=== PATIENT | male | born 1940 | race Caucasian/White ===

== ENCOUNTER 2019-06-01 08:21 | Inpatient (IN) | payer MEDICARE, SELFPAY ==
[~2019-06-01] VITALS: Ht 177.8 cm; Wt 75.7 kg
[2019-06-01] MEDS ORDERED: SODIUM CHLORIDE 0.9% 1,000 ML IV ONE ×2 (08:26)
[2019-06-01 09:17] LABS: Albumin 2.4 g/dL (3.4-5.0); Calcium 8.4 mg/dL (8.5-10.1); Potassium 4.5 mmol/L (3.5-5.1)
[2019-06-01 09:19] LABS: INR 1.23 (0.9-1.15); Lactic Acid w/Reflex 4.6 mmol/L (0.4-2.0); Partial Thromboplastin Time 29.8 sec (23.64-32.05)
[2019-06-01 09:23] LABS: BUN/Creatinine Ratio 30.2; Basophils # (auto) 0 10 ^3/uL (0-0.2); Basophils % (auto) 0.4 % (0.0-2.0); Bilirubin, Total 0.6 mg/dL (0.2-1.0); Eosinophils # (auto) 0 10 ^3/uL (0-0.8); Eosinophils % (auto) 0.1 % (0.0-7.0); Hematocrit 45.8 % (41.0-53.0); Hemoglobin 14.2 g/dL (13.5-17.5); Lymphocytes # (auto) 0.5 10 ^3/uL (0.4-5.4); Mean Corpuscular Hemoglobin 28.9 pg (28.0-32.0); Mean Corpuscular Volume 93.1 fL (80.0-100.0); Monocytes # (auto) 0.2 10 ^3/uL (0-1.3); Monocytes % (auto) 3.2 % (0.0-12.0); Neutrophils # (auto) 6.2 10 ^3/uL (1.6-8.6); Neutrophils % (auto) 89.3 % (37.0-80.0); Nucleated Red Blood Cells % 0.8 %; Red Blood Cells 4.91 10^6/uL (4.5-5.90); Red Cell Distribution Width 17.4 % (11.8-14.3); Total Protein 7.4 g/dL (6.4-8.2); White Blood Cell 6.9 10^3/uL (4.4-10.8)
[2019-06-01 09:27] LABS: Platelet Count (auto) 66 10^3/uL (140-450)
[2019-06-01] MEDS ORDERED: cefTRIAXone 1GM/50ML D5W 50 ML IV ONE (10:30)
[2019-06-01] MEDS ORDERED: AZITHROMYCIN 500MG/ 250ML 250 ML IV ONE (10:30)
[2019-06-01] MEDS ORDERED: NOREPINEPHRINE 8 MG/250ML KIT 250 ML IV ONE (10:56)
[2019-06-01] MEDS ORDERED: PIPERACILLIN-TAZOB 2.25GM 50 ML IV ONE (11:15)
[2019-06-01] MEDS ORDERED: LACTULOSE 20Gm/30ML SOLN PO PRN (11:15)
[2019-06-01] MEDS ORDERED: DEXTROSE (50%) 50ML SYRG IV PRN ×2 (11:15)
[2019-06-01] MEDS ORDERED: MORPHINE SULF INJ 2 MG/ML SYRINGE 1ML IV PRN (11:15)
[2019-06-01] MEDS ORDERED: NITROGLYCERIN 0.4 MG SL TAB SL PRN (11:15)
[2019-06-01] MEDS ORDERED: ACETAMINOPHEN 500 MG TAB PO PRN (11:15)
[2019-06-01] MEDS ORDERED: ONDANSETRON HCL 4 MG/2 ML VIAL IV PRN (11:15)
[2019-06-01] MEDS ORDERED: CLINDAMYCIN 900MG IV 50 ML IV ONE (11:15)
[2019-06-01] MEDS ORDERED: LORazepam 2MG/ML-1ML VIAL IV PRN (11:15)
[2019-06-01] MEDS ORDERED: ALBUTEROL SULF 2.5 MG/0.5ML(0.5%) NEB SOLN NEB PRN (11:15)
[2019-06-01] MEDS ORDERED: InsuLIN REG 1unit/0.01ml Soln (100units/ml) SC SCH (12:00)
[2019-06-01] MEDS ORDERED: ACCU-CHEK COMFORT CURVE STRIP VI SCH (12:00)
[2019-06-01] MEDS: D5W/SOD CHL 0.45% 1,000 ML IV SCH ×2 (12:03→21:34)
[2019-06-01] MEDS: NOREPINEPHRINE 8 MG/250ML KIT 250 ML IV SCH (12:08)
[2019-06-01] MEDS: ACCU-CHEK COMFORT CURVE STRIP VI SCH ×3 (13:00→21:33)
[2019-06-01] MEDS: FAMOTIDINE (10MG/ML) 2ML VL IV SCH (13:30)
[2019-06-01] MEDS: ALBUTEROL SULF 2.5 MG/0.5ML(0.5%) NEB SOLN NEB SCH ×2 (13:48→18:00)
[2019-06-01] MEDS: IPRATROPIUM BROM 0.5 MG/2.5ML INH SOL NEB SCH ×2 (13:48→18:00)
[2019-06-01 15:59] VITALS: BP 116/62
[2019-06-01] MEDS: InsuLIN REG 1unit/0.01ml Soln (100units/ml) SC SCH ×3 (16:42→21:43)
[2019-06-01] MEDS: CLINDAMYCIN 600MG IV 50 ML IV SCH (21:26)
[2019-06-01] MEDS: PIPERACILLIN-TAZOB 2.25GM 50 ML IV SCH (22:08)
[2019-06-02] VITALS (55 sets, daily range): BP systolic 60–114; BP diastolic 40–63
[2019-06-02] MEDS: ACCU-CHEK COMFORT CURVE STRIP VI SCH ×6 (00:21→20:00)
[2019-06-02 00:49] LABS: Urine Amorphous Crystal FEW /hpf (None Seen); Urine Bacteria FEW /hpf (None Seen); Urine Blood 2+ /uL (Negative); Urine Hyaline Cast MOD /lpf (0 - 2); Urine Specific Gravity 1.021 (1.001-1.035); Urine WBC 16 /hpf (0 - 3)
[2019-06-02] MEDS: IPRATROPIUM BROM 0.5 MG/2.5ML INH SOL NEB SCH ×4 (01:10→22:29)
[2019-06-02] MEDS: ALBUTEROL SULF 2.5 MG/0.5ML(0.5%) NEB SOLN NEB SCH ×3 (01:10→22:29)
[2019-06-02] MEDS: NOREPINEPHRINE 8 MG/250ML KIT 250 ML IV SCH (03:58)
[2019-06-02] MEDS: InsuLIN REG 1unit/0.01ml Soln (100units/ml) SC SCH ×6 (04:00→20:50)
[2019-06-02] MEDS: CLINDAMYCIN 600MG IV 50 ML IV SCH (04:54)
[2019-06-02 05:14] LABS: Basophils # (auto) 0 10 ^3/uL (0-0.2); Eosinophils # (auto) 0 10 ^3/uL (0-0.8); Eosinophils % (auto) 0.1 % (0.0-7.0); Hemoglobin 12.4 g/dL (13.5-17.5); Lymphocytes # (auto) 0.6 10 ^3/uL (0.4-5.4); Monocytes # (auto) 0.3 10 ^3/uL (0-1.3); Red Cell Distribution Width 16.9 % (11.8-14.3); White Blood Cell 8.1 10^3/uL (4.4-10.8)
[2019-06-02 05:16] LABS: Basophils % (auto) 0.4 % (0.0-2.0); Hematocrit 38.5 % (41.0-53.0); Lymphocytes % (auto) 7.3 % (10.0-50.0); Mean Corpuscular Hemoglobin 29.2 pg (28.0-32.0); Mean Corpuscular Hgb Conc. 32.1 g/dL (32.0-36.0); Monocytes % (auto) 3.9 % (0.0-12.0); Neutrophils # (auto) 7.2 10 ^3/uL (1.6-8.6); Neutrophils % (auto) 88.3 % (37.0-80.0); Platelet Count (auto) 60 10^3/uL (140-450); Red Blood Cells 4.24 10^6/uL (4.5-5.90)
[2019-06-02 05:33] LABS: Albumin 2.1 g/dL (3.4-5.0); Calcium 7.5 mg/dL (8.5-10.1); Potassium 4.3 mmol/L (3.5-5.1)
[2019-06-02 05:37] LABS: BUN/Creatinine Ratio 25.9; Bilirubin, Total 0.5 mg/dL (0.2-1.0); Total Protein 6.6 g/dL (6.4-8.2)
[2019-06-02] MEDS: PIPERACILLIN-TAZOB 2.25GM 50 ML IV SCH ×3 (06:34→20:51)
[2019-06-02] MEDS ORDERED: ENOXAPARIN SOD 30 MG/0.3 ML SYRINGE SC SCH (10:00)
[2019-06-02] MEDS ORDERED: ASPirin 81 mg TAB PO SCH (10:00)
[2019-06-02] MEDS ORDERED: ENOXAPARIN SOD 60 MG/0.6 ML SYRINGE SC SCH (10:00)
--- NOTE | 2019-06-02 10:00 | NUR ---
Pt being admitted to ICU PEDRO LUISBRENDAN admitted to ICU via gurney on tmd teacher assistant, and portable 02. Patient transfered to bed, connected to ICU monitoring and oxygen, and weighed by bedscale. Patient oriented to Irma Bowen,FRAN primary RN,ICU unit,room 107, bed, and unit policies regarding patient care and visiting hours.
--- NOTE | 2019-06-02 10:05 | NUR ---
SPOKE TO FAMILY Called Jennifer, daughter, and notified her of need to for intubation and central line. Jennifer verbalized understanding and that she wants everything done. Second RN verified consent for line. Signed and placed in chart.
--- NOTE | 2019-06-02 10:11 | NUR ---
NON REBREATHER Patient came to ICU on simple mask at 10L, switched to non rebreather due to accessory muscle use and low saturations. RT bedside.
[2019-06-02] MEDS ORDERED: SUCCINYLCHOLINE CHLORIDE 20 MG/ML 10ML VIAL IV ONE (10:28)
[2019-06-02] MEDS ORDERED: ETOMIDATE (2MG/ML) 20ML VIAL IV ONE (10:28)
[2019-06-02] MEDS ORDERED: fentaNYL Drip 2500mCg/250mlNS 250 ML IV ONE ×2 (10:33→22:45)
--- NOTE | 2019-06-02 10:41 | NUR ---
ICU pt. intubated after admit Dr. Capone called regarding patient's respiratory status. Order received for intubation. Respiratory Therapist notified and at bedside. Family instructed on need for intubation and possible sedation while on ventilator. Patient intubated by Shanthi with 8 ETT, 21 at the [facility]. Medications: Etomidate 16 Suc 120 Addendum: 06/02/19 at 1304 by Irma Bowen RN RN 23 at [facility]
[2019-06-02] MEDS ORDERED: D5W 5% 1,000 ML IV ONE (10:45)
[2019-06-02] MEDS: FAMOTIDINE (10MG/ML) 2ML VL IV SCH (10:50)
[2019-06-02] MEDS: AZITHROMYCIN 500MG/ 250ML 250 ML IV SCH (10:50)
--- NOTE | 2019-06-02 10:50 | NUR ---
UPDATED FAMILY Called Angi daughter and updated her on patient status, vent, pressure support, etc.
[2019-06-02] MEDS ORDERED: ALBUTEROL SULF HFA 90MCG INH 200DOSE IN SCH (11:00)
[2019-06-02] MEDS: CHOLECALCIFEROL (VITD3) 1,000IU=25mCg TAB PO SCH (11:00)
[2019-06-02] MEDS: ASCORBIC ACID 500 MG TAB PO SCH (11:00)
[2019-06-02] MEDS ORDERED: ACETAMINOPHEN 500 MG TAB PO PRN ×2 (11:00→15:45)
[2019-06-02] MEDS: ZINC SULFATE 220mg CAP or TAB PO SCH (11:00)
--- NOTE | 2019-06-02 11:00 | NUR ---
PT INTUBATED 8.0 ETT SECURED AT 23 CM AT THE LIP WITH DEVIN. PT PLACED ON VENT ON ORDERED SETTINGS PER DR MILLIGAN, AC RR 12, VT 550, PEEP 8, 100% FIO2. SPO2 92%. EQUAL BILAT CHEST RISE AND FALL NOTED. POSITIVE COLOR CHANGE NOTED ON CO2 DETECTOR. BILAT BREATH SOUNDS AUSCULTATED.
--- NOTE | 2019-06-02 11:40 | NUR ---
SPOKE TO FAMILY Family, daughter, Angi has verbalized to make her father DNR. Candice spoke with her over the phone and form has been filed in the chart.
--- NOTE | 2019-06-02 11:40 | NUR ---
VENT SETTINGS CHANGED BY DR PRASAD TO AC RR 18, VT 450, PEEP7, 100%.
--- NOTE | 2019-06-02 14:08 | NUR ---
Nutrition Assessment Notes Please refer to link for full assessment notes. Est energy needs: 4354-6108 kcals (25-30 kcal/kgBW) Est protein needs: 60-65 gms/day (1.0-1.1 gm/kgBW) Will continue to monitor and reassess prn. Addendum: 06/02/19 at [address] Amended: Links added.
[2019-06-02] MEDS ORDERED: D5W 5% 1,000 ML IV SCH (15:45)
[2019-06-02 17:13] LABS: Albumin 1.8 g/dL (3.4-5.0); Calcium 7.1 mg/dL (8.5-10.1); Potassium 3.9 mmol/L (3.5-5.1)
[2019-06-02 17:17] LABS: BUN/Creatinine Ratio 23.4; Bilirubin, Total 0.6 mg/dL (0.2-1.0); Total Protein 5.9 g/dL (6.4-8.2)
[2019-06-02 17:20] LABS: Cholesterol 91 mg/dL (< 200)
[2019-06-02 17:22] LABS: HDL Cholesterol 51 mg/dL (40-59); LDL Cholesterol 32 mg/dL (< 100); Triglycerides 76 mg/dL (< 150)
[2019-06-02] MEDS ORDERED: SODIUM CHL 3% 200 ML IV ONE (18:00)
--- NOTE | 2019-06-02 18:07 | NUR ---
SPOKE TO MD Dr. Mota has ordered 3% sodium at 40ml/hr for 3 hours to slow down hypernatremia collection. Addendum: 06/02/19 at 1807 by Irma Bowen RN RN correction*
[2019-06-02] MEDS ORDERED: SODIUM CHL 3% 120 ML IV ONE (19:00)
[2019-06-02] MEDS ORDERED: SODIUM CHL 3% 500 ML IV ONE (19:30)
--- NOTE | 2019-06-02 19:45 | NUR ---
OPEN ASSUMED CARE OF MALE PT ORALLY INTUBATED. PT SEDATED ON FENTANYL GTT 200 MCG/HR. SINUS RHYTHM ON MITER SAWYER. PT ON LEVOPHED GTT 16 MCG/MIN. GTT'S INFUSING INTO RIJ TLC ALL PORTS PATENT. DRESSING CDI. NGT TO L. NARE CLAMPED. PLACEMENT VERIFIED. 20 G IV TO L. AC S/L B&P, 18 G IV TO L. UPPER F.A. B&P. SEGAL TO GRAVITY DRAINING SCANT DARK ALANNAH URINE CLOUDY IN APPEARANCE. PT HYPOTHERMIC. WARMING MEASURES PLACED. PT ON RESPIRATORY PRECAUTIONS IN NEGATIVE PRESSURE ROOM. PT IS RULE OUT COVID-19 PRECAUTIONS. PROPER PPE IN USE. NO INDICATION OF PAIN OBSERVED. BED IN LOWEST LOCKED POSITION. SIDE RAILS UP X 3. HOB ELEVATED 30 DEGREES. PILLOWS USED TO OFFLOAD BONY PROMINENCES AND LISA HEELS. PT IN FULL VIEW OF RN STATION. WILL CONTINUE TO MONITOR.
[2019-06-03] VITALS (104 sets, daily range): BP systolic 65–179; BP diastolic 29–96
[2019-06-03] MEDS: fentaNYL Drip 2500mCg/250mlNS 250 ML IV SCH (00:04)
[2019-06-03 00:08] LABS: BUN/Creatinine Ratio 23.1; Calcium 7.1 mg/dL (8.5-10.1)
[2019-06-03] MEDS: ACCU-CHEK COMFORT CURVE STRIP VI SCH ×5 (00:09→18:00)
[2019-06-03] MEDS: InsuLIN REG 1unit/0.01ml Soln (100units/ml) SC SCH ×5 (00:10→18:00)
[2019-06-03] MEDS: NOREPINEPHRINE 8 MG/250ML KIT 250 ML IV SCH ×2 (00:24→06:39)
--- NOTE | 2019-06-03 03:15 | NUR ---
GI/ BATH LINEN CHANGE PT HAD SMALL BROWN BM. PT GIVEN COMPLETE BED BATH AND LINEN CHANGE. NEW OPTIFOAM GENTLE SACRAL DRESSING PLACED. PT REPOSITIONED. ORAL CARE PROVIDED.
[2019-06-03 03:45] LABS: Basophils # (auto) 0 10 ^3/uL (0-0.2); Basophils % (auto) 0.3 % (0.0-2.0); Eosinophils # (auto) 0 10 ^3/uL (0-0.8); Eosinophils % (auto) 0.2 % (0.0-7.0); Lymphocytes # (auto) 0.7 10 ^3/uL (0.4-5.4); Monocytes # (auto) 0.2 10 ^3/uL (0-1.3); Red Cell Distribution Width 17.9 % (11.8-14.3); White Blood Cell 6.3 10^3/uL (4.4-10.8)
[2019-06-03 03:46] LABS: Hematocrit 37.1 % (41.0-53.0); Hemoglobin 11.2 g/dL (13.5-17.5); Lymphocytes % (auto) 11.1 % (10.0-50.0); Mean Corpuscular Hemoglobin 28.7 pg (28.0-32.0); Mean Corpuscular Hgb Conc. 30.4 g/dL (32.0-36.0); Mean Corpuscular Volume 94.6 fL (80.0-100.0); Monocytes % (auto) 2.9 % (0.0-12.0); Neutrophils # (auto) 5.4 10 ^3/uL (1.6-8.6); Neutrophils % (auto) 85.5 % (37.0-80.0); Nucleated Red Blood Cells % 1.4 %; Platelet Count (auto) 46 10^3/uL (140-450); Red Blood Cells 3.92 10^6/uL (4.5-5.90)
--- NOTE | 2019-06-03 04:12 | NUR ---
FAMILY CALL PT DAUGHTER ELADIO CALLED UNIT FOR UPDATE ON PT CONDITION. AFTER PASSWORD FOR PHONE GIVEN, UPDATE PROVIDED. ALL QUESTIONS AND CONCERNS ADDRESSED.
[2019-06-03] MEDS: PIPERACILLIN-TAZOB 2.25GM 50 ML IV SCH ×3 (04:40→21:07)
[2019-06-03] MEDS: IPRATROPIUM BROM 0.5 MG/2.5ML INH SOL NEB SCH (07:30)
[2019-06-03] MEDS: ALBUTEROL SULF 2.5 MG/0.5ML(0.5%) NEB SOLN NEB SCH (07:30)
--- NOTE | 2019-06-03 07:36 | NUR ---
RT NOTE: VOICE MAIL LEFT FOR DR. PRASAD REGARDING ABG RESULTS.
--- NOTE | 2019-06-03 07:40 | NUR ---
RT NOTE: ABG RESULTS REPORTED TO HOSPITALIST DR. QUINTANA.
[2019-06-03] MEDS ORDERED: SOD CHL 0.45% 1,000 ML IV SCH (07:45)
--- NOTE | 2019-06-03 07:45 | NUR ---
RETURN CALL FROM DR QUINTANA REGARDING CRITICAL ABG. ORDERS FOR 1/2 NS WITH 2 AMPS OF SODIUM BICARB RECEIVED TO RUN AT 75 MLS/HR. ORDERS WILL BE CARRIED OUT.
[2019-06-03] MEDS ORDERED: AZITHROMYCIN DIHYD 500 MG VIAL IV SCH (09:00)
--- NOTE | 2019-06-03 09:54 | NUR ---
WOUND CARE NOTE: Wound care in to see patient per wound care request regarding low Hayden score of 10, intubation status,putting patient to high risk for skin breakdown. Patient is 78 years old male with admitting diagnosis of Pneumonia with Sepsis and Septic Shock. Patient with history of Dementia, DM, High Lipids. Patient is resting in ICU bed in Rm. 112. Patient is intubated, and mechanically ventilated. Unable to do full skin assessment at this time due to patient is on airborne precautions, R/O CoVid, limiting exposure. RN Salome reported that she just got out of patient's room and she noted skin issue to patient's foot, toes and darkened heels. Bedside nurse is clustering care to limit exposure, requesting assistance for skin/wound assessment, agreement made to do skin/wound assessment on next patient's care at 1200 noon.
[2019-06-03] MEDS: AZITHROMYCIN 500MG/ 250ML 250 ML IV SCH (10:06)
[2019-06-03] MEDS: SODIUM BICARBONATE 50ML VIAL 100 ML in SOD CHL 0.45% 1,000 ML IV SCH ×2 (10:06→23:40)
[2019-06-03] MEDS: ZINC SULFATE 220mg CAP or TAB PO SCH (10:06)
[2019-06-03] MEDS: ASCORBIC ACID 500 MG TAB PO SCH (10:07)
[2019-06-03] MEDS: CHOLECALCIFEROL (VITD3) 1,000IU=25mCg TAB PO SCH (10:08)
--- NOTE | 2019-06-03 10:24 | NUR ---
SEDATION VACATION NO ORDER FOR VACATION RECEIVED/COVID 19 RULE OUT, PENDING MD ASSESSMENT. Addendum: 06/03/19 at 1025 by Salome Valles RN Amended: Links added.
[2019-06-03 10:29] LABS: Basophils # (auto) 0 10 ^3/uL (0-0.2); Basophils % (auto) 0.2 % (0.0-2.0); Eosinophils # (auto) 0 10 ^3/uL (0-0.8); Eosinophils % (auto) 0.2 % (0.0-7.0); Hematocrit 35.2 % (41.0-53.0); Hemoglobin 11.5 g/dL (13.5-17.5); Lymphocytes # (auto) 0.7 10 ^3/uL (0.4-5.4); Mean Corpuscular Hemoglobin 29.9 pg (28.0-32.0); Mean Corpuscular Hgb Conc. 32.6 g/dL (32.0-36.0); Mean Corpuscular Volume 91.6 fL (80.0-100.0); Monocytes # (auto) 0.2 10 ^3/uL (0-1.3); Monocytes % (auto) 2.7 % (0.0-12.0); Neutrophils # (auto) 6.2 10 ^3/uL (1.6-8.6); Neutrophils % (auto) 86.9 % (37.0-80.0); Nucleated Red Blood Cells % 0.7 %; Platelet Count (auto) 38 10^3/uL (140-450); Red Blood Cells 3.84 10^6/uL (4.5-5.90); Red Cell Distribution Width 17.3 % (11.8-14.3); White Blood Cell 7.2 10^3/uL (4.4-10.8)
--- NOTE | 2019-06-03 10:30 | NUR ---
HOSPITALIST AT BEDSIDE DR PADILLA UPDATED ON PATIENT'S STATUS, DRIPS AND PENDING LABS FOR THIS MORNING. DR PADILLA ALSO AWARE OF MORNING ABG AND ORDERS RECEIVED FROM DR QUINTANA. DR PADILLA ORDERED ONE AMP OF SODIUM BICARB IVP. NO FURTHER ORDERS RECEIVED AT THIS TIME.
[2019-06-03 10:47] LABS: Albumin 1.6 g/dL (3.4-5.0); Calcium 7.2 mg/dL (8.5-10.1); Potassium 5.3 mmol/L (3.5-5.1)
[2019-06-03 10:52] LABS: Bilirubin, Total 0.8 mg/dL (0.2-1.0); Total Protein 5.7 g/dL (6.4-8.2)
--- NOTE | 2019-06-03 11:43 | NUR ---
DR PRASAD AT BEDSIDE UPDATED ON PATIENT'S STATUS, DRIPS AND PENDING LAB RESULTS. DR PRASAD AWARE OF MORNING ABG RESULTS AND ORDERED FLUIDS BY ER PHYSICIAN AND DR PADILLA'S RECOMMENDATIONS FOR ONE ADDITIONAL AMP OF SODIUM BICARB IVP. DR PRASAD VERBALIZED UNDERSTANDING AND STANDING ORDERS FOR: CBC, CMP, ABG AND CXR DAILY.
[2019-06-03] MEDS ORDERED: SODIUM BICARBONATE 8.4 % INJ 50ML VIAL IV ONE (11:45)
--- NOTE | 2019-06-03 11:45 | NUR ---
PAGED HOSPITALIST DR PADILLA TO REVIEW LAB RESULTS, AWAITING RESPONSE.
--- NOTE | 2019-06-03 11:48 | NUR ---
RETURN CALL FROM HOSPITALIST WILL REVIEW LABS AND PROVIDE ORDERS.
[2019-06-03] MEDS ORDERED: SODIUM BICARBONATE 8.4% INJ 50ML SYRINGE ONE (11:52)
[2019-06-03] MEDS: FAMOTIDINE (10MG/ML) 2ML VL IV SCH (12:20)
--- NOTE | 2019-06-03 12:30 | NUR ---
WOUND CARE NOTE: Wound care in to see patient for skin/wound assessment noted by bedside nurse upon assessment. Patient is resting in ICU premium bed in Rm. 112A. Patient is intubated and mechanically ventilated. Patient appears to be in no pain using Turner Campbell Faces Pain Scale. Skin/wound assessment done with the assistance of patient's nurse, FRAN Mcmahon. Patient noted with multiple pressure injury in various Stages. His distal Rt great toe and Rt second toe has dark purple/black discoloration. Multiple intact DTI noted on patient's Rt plantar foot at metatarsal head (5x4.5cm), Rt heel (9x9cm), L medial foot (1.2x1.2cm), and L heel (7x5cm). Deep Tissue Injuries are dark purple,soft and boggy to touch. Patient's Rt anterior ankle has 1.5x1.5cm dark red non-blanchable skin with serum filled blister consistent with Stage 2 pressure injury). Foot, heel, toes wounds has no drainage/odor noted, left open to air. Patient's sacrum has dark hyperpigmented, non-blanchable skin (stage 1 pressure injury). Patient's perirectal area has multi open wounds consistent with moisture associated skin damage. Patient pass scant amount of pasty stool; yolanda care given, applied Z Guard cream to perirectal area, lower buttocks and sacrum. Covered upper sacrum with Opti foam sacral dressing. Unstageable pressure injury note don patient's Rt hip measuring 1.5x1.5cm. Wound is covered with 100% black eschar,yolanda wound is bright red/pink, no drainage/odor noted, left open to air. Multiple intact scars with brown hyperpigmented skin noted on patient's L hip and L lateral thigh area; clean and dry, left open to air. Patient tolerated well. fill technician arrived at bedside. Given bedside nurse Leola foam boots for patient's BLE. FRAN Mcmahon and certified hyperbaric technologist at bedside. RECOMMENDATION: Nursing to continue with BID/PRN cleaning and application of Z Guard cream to sacral, buttocks, perineum wound per MD order, Dietary consult , frequent turning and repositioning schedule as condition permits, redistribute pressure points with pillows, Leola foam boots to BLE, air mattress if patient to transfer to other unit, continue monitoring by wound care while patient is hospitalized. Addendum: 06/03/19 at 1343 by Alis Herrera RN Amended: Links added.
--- NOTE | 2019-06-03 12:58 | NUR ---
DR PAIGE/FAMILY UPDATE PATIENT'S SON KURTIS ON PHONE, DR PAIGE SPOKE WITH KURTIS AND UPDATE ON PATIENT'S STATUS. DISCUSS PLAN OF CARE AND PROGNOSIS. PER KURTIS DISCUSSED WITH DR PAIGE AND VERIFIED BY THIS NURSE, PATIENT IS DNR AND NO FURTHER INVASIVE TREATMENT OR ADDED TREATMENTS TO BE ADDED AT THIS TIME. Addendum: 06/03/19 at 1406 by Salome Valles RN DR PAIGE AWARE OF CRITICAL LABS NO VERBAL ORDERS RECEIVED AT THIS TIME.
[2019-06-03] MEDS ORDERED: ALBUTEROL SULF 2.5 MG/0.5ML(0.5%) NEB SOLN NEB SCH (14:00)
[2019-06-03] MEDS ORDERED: IPRATROPIUM BROM 0.5 MG/2.5ML INH SOL NEB SCH (14:00)
[2019-06-03] MEDS ORDERED: IPRATROPIUM BROMIDE HFA AER IN SCH (14:00)
[2019-06-03] MEDS ORDERED: ALBUTEROL SULF HFA 90MCG INH 200DOSE IN SCH ×2 (14:00)
--- NOTE | 2019-06-03 14:00 | NUR ---
PAGED HOSPITALIST DR PADILLA TO UPDATE ON DR PAIGE'S CONVERSATION WITH FAMILY OF NO FURTHER TREATMENT ONLY CONTINUE WHAT IS BEING DONE AT THIS TIME, AWAITING RESPONSE.
--- NOTE | 2019-06-03 15:40 | NUR ---
RETURN CALL FROM HOSPITALIST DR PADILLA UPDATED ON PATIENT'S STATUS AND DR PAIGE'S CONVERSATION WITH FAMILY. DR PADILLA ORDERED ONCOLOGY/HEMATOLOGY CONSULT AND ECHO TO BE CANCELLED AT THIS TIME. SHE WILL CONTACT FAMILY TOMORROW AND DISCUSS NEXT PLAN OF CARE.
--- NOTE | 2019-06-03 19:17 | NUR ---
END OF SHIFT NOTE PATIENT MECHANICALLY VENTILATED, VSS AND DOCUMENTED, NO DISTRESS NOTED, RESPIRATIONS EVEN AND UNLABORED. PATIENT CARE ENDORSED TO HOG SAWYER RN.
--- NOTE | 2019-06-03 20:00 | NUR ---
OPEN ASSUMED CARE OF MALE PT ORALLY INTUBATED. PT SEDATED ON FENTANYL GTT 175 MCG/HR. SINUS RHYTHM ON CYBER SOFTWARE ENGINEER. PT ON LEVOPHED GTT 28 MCG/MIN. GTT'S INFUSING INTO RIJ TLC ALL PORTS PATENT. DRESSING CDI. NGT TO L. NARE CLAMPED. PLACEMENT VERIFIED. 20 G IV TO L. AC S/L B&P, 18 G IV TO L. UPPER F.A. B&P. SEGAL TO GRAVITY DRAINING SCANT DARK ALANNAH URINE CLOUDY IN APPEARANCE. PT ON RESPIRATORY PRECAUTIONS IN NEGATIVE PRESSURE ROOM. PT IS RULE OUT COVID-19 PRECAUTIONS. PROPER PPE IN USE. PT OBSERVED TO HAVE LISA CHERRY BOOTS IN PLACE OFFLOADING LISA HEELS. DARK NON BLANCHABLE AREAS OBSERVED TO LISA HEELS/ R. TOES. LISA ELBOWS. L. HIP, R. LAT THIGH. DARKENED NON BLANCHING AREA TO SACRUM, EXCORIATION TO PERIANAL AREA. OPTIFOAM GENTLE SACRAL DRESSING IN PLACE. ZGAURD TO PERIANAL AREA. NO INDICATION OF PAIN OBSERVED. BED IN LOWEST LOCKED POSITION. SIDE RAILS UP X 3. HOB ELEVATED 30 DEGREES. PILLOWS USED TO OFFLOAD BONY PROMINENCES. PT IN FULL VIEW OF RN STATION. WILL CONTINUE TO MONITOR.
--- NOTE | 2019-06-03 21:11 | NUR ---
SEDATION VACATION CONTRAINDICATED AT THIS TIME. Addendum: 06/03/19 at 2125 by Bhavani Barlow RN Amended: Links added.
[2019-06-04] VITALS (100 sets, daily range): BP systolic 89–145; BP diastolic 51–79
[2019-06-04] MEDS: ACCU-CHEK COMFORT CURVE STRIP VI SCH ×4 (00:13→17:55)
[2019-06-04] MEDS: fentaNYL Drip 2500mCg/250mlNS 250 ML IV SCH (01:30)
--- NOTE | 2019-06-04 03:45 | NUR ---
GI/PT BATH LINEN CHANGE PT HAD SMALL PASTY BROWN BM. PT CLEANSED. ZGARUD BARRIER OINTMENT APPLIED TO EXCORIATED TONY ANAL AREA. BED BATH PROVIDED. LINENS CHANGED.
[2019-06-04 04:11] LABS: Basophils # (auto) 0 10 ^3/uL (0-0.2); Eosinophils # (auto) 0.1 10 ^3/uL (0-0.8); Mean Corpuscular Hemoglobin 28.8 pg (28.0-32.0); Monocytes # (auto) 0.2 10 ^3/uL (0-1.3); Neutrophils # (auto) 9.9 10 ^3/uL (1.6-8.6); Red Cell Distribution Width 16.6 % (11.8-14.3)
[2019-06-04 04:12] LABS: Basophils % (auto) 0.3 % (0.0-2.0); Eosinophils % (auto) 0.5 % (0.0-7.0); Hematocrit 31.8 % (41.0-53.0); Hemoglobin 10.3 g/dL (13.5-17.5); Lymphocytes % (auto) 8.6 % (10.0-50.0); Mean Corpuscular Hgb Conc. 32.3 g/dL (32.0-36.0); Mean Corpuscular Volume 89.1 fL (80.0-100.0); Monocytes % (auto) 1.6 % (0.0-12.0); Nucleated Red Blood Cells % 0.4 %; Platelet Count (auto) 40 10^3/uL (140-450); Red Blood Cells 3.57 10^6/uL (4.5-5.90); White Blood Cell 11.1 10^3/uL (4.4-10.8)
[2019-06-04] MEDS: ALBUTEROL SULF 2.5 MG/0.5ML(0.5%) NEB SOLN NEB SCH ×4 (04:20→22:25)
[2019-06-04] MEDS: IPRATROPIUM BROM 0.5 MG/2.5ML INH SOL NEB SCH ×4 (04:20→22:25)
[2019-06-04 04:27] LABS: Chloride 121 mmol/L (98-107); Potassium 4.2 mmol/L (3.5-5.1); Sodium 151 mmol/L (136-145)
[2019-06-04 04:29] LABS: Lactic Acid w/Reflex 3.7 mmol/L (0.4-2.0)
[2019-06-04 04:32] LABS: Alanine Aminotransferase 82 U/L (16-61); Albumin 1.2 g/dL (3.4-5.0); Anion Gap 13 (5-15); Aspartate Aminotransferase 229 U/L (15-37); BUN/Creatinine Ratio 20.2; Bilirubin, Total 1.1 mg/dL (0.2-1.0); Calcium 6.5 mg/dL (8.5-10.1); Carbon Dioxide 17 mmol/L (21-32); GFR African American 14 mL/min; GFR Non-African American 11 mL/min; Glucose 135 mg/dL (74-106)
[2019-06-04 04:37] LABS: Alkaline Phosphatase 376 U/L (45-117)
[2019-06-04 04:41] LABS: Blood Urea Nitrogen 105 mg/dL (7-18)
[2019-06-04] MEDS: PIPERACILLIN-TAZOB 2.25GM 50 ML IV SCH ×3 (04:52→21:00)
[2019-06-04 05:11] LABS: CRP High Sensitivity > 19 mg/dL (< 0.3)
[2019-06-04] MEDS: InsuLIN REG 1unit/0.01ml Soln (100units/ml) SC SCH ×4 (05:30→17:55)
--- NOTE | 2019-06-04 08:37 | NUR ---
MEDICATION BACK ORDER CONTACT PHARMACY REGARDING ZINC AND PEPCID - PER PHARMACISTS, BOTH MEDICATIONS ARE ON BACK ORDER, MEDICATIONS HELD. MD WILL BE NOTIFIED.
[2019-06-04] MEDS: FAMOTIDINE (10MG/ML) 2ML VL IV SCH (10:00)
[2019-06-04] MEDS: ZINC SULFATE 220mg CAP or TAB PO SCH (10:00)
[2019-06-04] MEDS: AZITHROMYCIN 500MG/ 250ML 250 ML IV SCH (10:54)
[2019-06-04] MEDS: ASCORBIC ACID 500 MG TAB PO SCH (10:55)
[2019-06-04] MEDS: CHOLECALCIFEROL (VITD3) 1,000IU=25mCg TAB PO SCH (10:55)
--- NOTE | 2019-06-04 10:56 | NUR ---
SEDATION VACATION HELD COVID 19 RULE OUT. NO ORDERS RECEIVED. Addendum: 06/04/19 at 1057 by Salome Valles RN Amended: Links added.
--- NOTE | 2019-06-04 12:00 | NUR ---
BM/COMFORT PATIENT CLEANSED OF LARGE SOFT/FORMED LIGHT BROWN STOOL. COMFORT MEASURES PROVIDED, PATIENT TOLERATED WELL.
--- NOTE | 2019-06-04 12:15 | NUR ---
HOSPITALIST AT BEDSIDE DR PADILLA UPDATED ON PATIENT'S STATUS, DRIPS, MORNING LABS AND REMINDED OF FAMILY REQUEST NOT TO CONTINUE WITH ANY INVASIVE CARE. DR PADILLA VERBALIZED UNDERSTANDING AND PATIENT'S SON'S WANDER PHONE NUMBER WAS GIVEN SO THAT SHE CAN CALL AND SPEAK WITH FAMILY. DR PADILLA STATED SHE WOULD CALL FAMILY ONCE SHE IS AVAILABLE. 12:35 Family updated on pt status, Juli phone conferenced all siblings on the phone after password verification. All questions and concerns addressed. All family members verbalized understanding. This nurse will send Wander information on homes as family is considering terminally weaning patient, pending hospitalist phone call. 12:43 Nephrology at bedside, Dr. Mota updated on patient's status and family conversation. Dr. Mota will review chart first.
[2019-06-04] MEDS: NOREPINEPHRINE 8 MG/250ML KIT 250 ML IV SCH (13:00)
[2019-06-04] MEDS ORDERED: ALBUTEROL SULF HFA 90MCG INH 200DOSE IN SCH (14:00)
[2019-06-04] MEDS ORDERED: MIDAZOLAM DRIP 50 mg/50mL 0 ML IV ONE (14:55)
[2019-06-04] MEDS: SODIUM BICARBONATE 50ML VIAL 100 ML in SOD CHL 0.45% 1,000 ML IV SCH (15:00)
--- NOTE | 2019-06-04 15:00 | NUR ---
BM/COMFORT PATIENT CLEANSED OF LARGE FORMED/SOFT STOOL. PATIENT TOLERATED WELL. PATIENT ADJUSTED FOR COMFORT AND TO MAINTAIN SKIN INTEGRITY.
--- NOTE | 2019-06-04 17:30 | NUR ---
BM/COMFORT PATIENT CLEANSED OF SMALL SOFT/LIQUID LIGHT BROWN STOOL. PATIENT ADJUSTED FOR COMFORT AND TO MAINTAIN SKIN INTEGRITY.
--- NOTE | 2019-06-04 18:22 | NUR ---
Respiratory note: ENTERED ROOM 112 USING PROPER PPE FOR START OF SHIFT RESP ASSESSMENT. RECEIVED PT ON VENT. PT ETT TO VENT, VENT CONNECTED TO RED OUTLET AND O2 SOURCE. ALARMS ARE SET AND AUDIBLE. AMBU BAG AND MASK AT BEDSIDE. ETT MOVED FROM LEFT TO CENTER WITHOUT INCIDENT. BS ARE FINE COURSE SXD FOR SCANT THIN CLEAR. WILL CONTINUE TO MONITOR Q2H VENT CHECK.
[2019-06-04] MEDS ORDERED: NOREPINEPHRINE 8 MG/250ML KIT 250 ML IV ONE (20:28)
[2019-06-04] MEDS ORDERED: fentaNYL Drip 2500mCg/250mlNS 250 ML IV ONE (20:28)
--- NOTE | 2019-06-04 22:30 | NUR ---
Respiratory note: ENTERED PTS ROOM USING PROPER PPE, ROUTINE VENT CHECK OBTAINED, MED NEB TX GIVEN VIA AEROGEN. NO ADVERSE REACTION NOTED. SXD VIA ETT FOR SCANT CLEAR. FIO2 TITRATED TO 30%. PTS CURRENT TEMP IS 96.8F. JOSEE HEATER TEMP DECREASED SET TEMP TO 34.0C DUE TO INCREASED WATER ACCUMULATION IN CIRCUIT. CIRCUIT TUBING HAD TO BE DRAINED AND WAS DONE WITHOUT INCIDENT. FRAN VERA AT BEDSIDE AND AWARE OF ALL CHANGES MADE.
[2019-06-05] VITALS (91 sets, daily range): BP systolic 73–208; BP diastolic 41–107
[2019-06-05] MEDS: fentaNYL Drip 2500mCg/250mlNS 250 ML IV SCH (00:04)
--- NOTE | 2019-06-05 00:22 | NUR ---
Respiratory note: AT BEDSIDE FOR ROUTINE VENT CHECK. NO CHANGES MADE AT THIS TIME WILL CONTINUE TO MONITOR Q2H. PTS CURRENT TEMP IS 97.5F.
[2019-06-05] MEDS: InsuLIN REG 1unit/0.01ml Soln (100units/ml) SC SCH ×4 (00:45→18:00)
[2019-06-05] MEDS: ACCU-CHEK COMFORT CURVE STRIP VI SCH ×4 (00:45→18:00)
[2019-06-05 02:10] LABS: Basophils # (auto) 0 10 ^3/uL (0-0.2); Eosinophils # (auto) 0 10 ^3/uL (0-0.8); Lymphocytes # (auto) 0.4 10 ^3/uL (0.4-5.4); Mean Corpuscular Hemoglobin 28.6 pg (28.0-32.0); Mean Corpuscular Hgb Conc. 32.8 g/dL (32.0-36.0); Monocytes # (auto) 0.1 10 ^3/uL (0-1.3); Monocytes % (auto) 1.7 % (0.0-12.0); Neutrophils # (auto) 6.7 10 ^3/uL (1.6-8.6)
[2019-06-05 02:12] LABS: Basophils % (auto) 0.1 % (0.0-2.0); Eosinophils % (auto) 0.5 % (0.0-7.0); Hemoglobin 9.8 g/dL (13.5-17.5); Mean Corpuscular Volume 87.3 fL (80.0-100.0); Neutrophils % (auto) 91.7 % (37.0-80.0); Nucleated Red Blood Cells % 1.1 %; Platelet Count (auto) 42 10^3/uL (140-450); Red Blood Cells 3.43 10^6/uL (4.5-5.90); Red Cell Distribution Width 16.3 % (11.8-14.3); White Blood Cell 7.3 10^3/uL (4.4-10.8)
--- NOTE | 2019-06-05 02:16 | NUR ---
Respiratory note: ROUTINE VENT CHECK DONE AT THIS TIME. NO CHANGES MADE WILL CONTINUE TO MONITOR Q2H. PTS CURRENT TEMP IS 98.1F.
[2019-06-05 02:28] LABS: Albumin 1.3 g/dL (3.4-5.0); BUN/Creatinine Ratio 21.2; Calcium 6.6 mg/dL (8.5-10.1); Potassium 3.8 mmol/L (3.5-5.1)
[2019-06-05 02:31] LABS: Bilirubin, Total 1.4 mg/dL (0.2-1.0); Total Protein 5.1 g/dL (6.4-8.2)
[2019-06-05] MEDS: PIPERACILLIN-TAZOB 2.25GM 50 ML IV SCH ×3 (05:00→21:12)
[2019-06-05] MEDS: ALBUTEROL SULF 2.5 MG/0.5ML(0.5%) NEB SOLN NEB SCH ×3 (06:28→22:02)
[2019-06-05] MEDS: IPRATROPIUM BROM 0.5 MG/2.5ML INH SOL NEB SCH ×3 (06:29→22:02)
[2019-06-05] MEDS ORDERED: SODIUM BICARBONATE 50ML VIAL 50 ML in SOD CHL 0.45% 1,000 ML IV SCH (09:45)
[2019-06-05] MEDS: ASCORBIC ACID 500 MG TAB PO SCH (10:00)
[2019-06-05] MEDS: CHOLECALCIFEROL (VITD3) 1,000IU=25mCg TAB PO SCH (10:00)
[2019-06-05] MEDS: AZITHROMYCIN 500MG/ 250ML 250 ML IV SCH (10:00)
[2019-06-05] MEDS: ZINC SULFATE 220mg CAP or TAB PO SCH (10:00)
--- NOTE | 2019-06-05 10:00 | NUR ---
PHARMACY Called and spoke to Evelyn regarding: PO Zinc. Per Evelyn no Zinc is available. Will notify
[2019-06-05 10:17] LABS: Lactic Acid w/Reflex 2.5 mmol/L (0.4-2.0)
[2019-06-05] MEDS: NOREPINEPHRINE 8 MG/250ML KIT 250 ML IV SCH (11:00)
--- NOTE | 2019-06-05 11:45 | NUR ---
COVID 19 Yesi, ICU director received COVID 19 results: NEGATIVE
--- NOTE | 2019-06-05 13:45 | NUR ---
assessment Patient is a 78 year old male who is on a vent. Per patients daughter Jennifer prior to admission patient lived home with family and functioned with assistance. Patients PCP [facility] at [facility] in [place]. Patients caregiver is Madhavi. Per Jennifer she will be transferring patients PCP to local. I informed Jennifer patients post discharge needs to be determined prior to discharge and after extubation. Addendum: 06/05/19 at 1349 by Aileen AGUILAR Amended: Links added.
[2019-06-05] MEDS: SODIUM BICARBONATE 50ML VIAL 50 ML in SOD CHL 0.45% 1,000 ML IV SCH (14:15)
[2019-06-05] MEDS ORDERED: Jevity 1.2 Cal/Fiber 1 Liter GT SCH (14:30)
--- NOTE | 2019-06-05 14:31 | NUR ---
Nutrition Follow-up Wt.: 56.100 kg Pt is sedated, intubated, receiving artificial ventilation. Pt was NPO with new order for TF with Jevity 1.2 Hunter @30 ml/hr. Recommend Glucerna 1.2 Hunter @60ml/hr goal rate. Will continue to monitor NPO status, skin status, pertinent labs and weight trends. Will f/u in 2 to 3 days. Est energy needs: 9337-5432 kcals (25-30 kcal/kgBW) Est protein needs: 60-65 gms/day (1.0-1.1 gm/kgBW) Labs 06/04: Na 150 H, BUN 100 H, Cr 4.72 H, POC 123 H, Ca 6.6 L, TP 5.1 L, Albumin 1.3 L Skin: Hayden scale 10, high risk, DTI to brett. foot, pressure ulcer to R hip GI: Pt had BM on 06/05/19 per supplier quality specialist. PES: 1) Inadequate nutrient intake r/t current nutrient needs aeb sedated, intubated, NPO status. 2) Altered nutrition related lab values r/t current medical condition aeb hypernatremia, hyperchloremia, elevated RFTs, low GFR, hypocalcemia, elevated LFTs, hypoalbuminemia Recommendations: 1) Consider EN support with Glucerna 1.2 @ 60 ml/hr goal rate 2) Gradually advance pt to Renal Specific oral diet when medically feasible and as tolerated 3) If albumin continues trending down with improved RFTs, consider Prostat 1 pkt BID 4) Continue current plan of care
--- NOTE | 2019-06-05 14:40 | NUR ---
ECHO technician trainee at bedside to obtain study.
--- NOTE | 2019-06-05 16:45 | NUR ---
TRANSFERRED PATIENT Patient transferred to room 102 per charge nurse Pattei. Transferred patient with no incident accompanied by this RN, Pattie RN, Luis JORDAN and Alexandra NASH.
--- NOTE | 2019-06-05 18:11 | NUR ---
Respiratory note: RECEIVED PT ON VENT, ETT TO VENT PT. VENT CONNECTED TO RED OUTLET AND O2 SOURCE. ALARMS ARE SET AND AUDIBLE. AMBU BAG AND MASK AT BEDSIDE BS ARE DIMINISHED T/O, NO SX DONE AT THIS TIME. JOSEE HEATER SET TEMP DECREASED TO 34.0C, DUE TO INCREASED RAIN OUT /CONDENSATION IN VENT CIRCUIT, CIRCUIT TUBING DRAINED WITHOUT INCIDENT. RT NAME AND PAGER ASSIGNMENT WRITTEN ON PTS ROOM BOARD. WILL CONTINUE TO MONITOR Q2H AND MORE NEEDED.
--- NOTE | 2019-06-05 20:10 | NUR ---
Respiratory note: AT BEDSIDE FOR ROUTINE VENT CHECK. NO VENT CHANGES MADE. PTS CURRENT TEMP IS 98.1F. WILL CONTINUE TO MONITOR.
--- NOTE | 2019-06-05 22:02 | NUR ---
Respiratory note: AT BEDSIDE FOR ROUTINE VENT CHECK. BS ARE FINE RHONCHI SXD FOR SCANT WHITE/CLEAR. MED NEB TX GIVEN INLINE VIA AEROGEN. PTS CURRENT TEMP IS 97.5F. NO VENT CHANGES MADE WILL CONTINUE TO MONITOR.
[2019-06-06] VITALS (73 sets, daily range): BP systolic 88–153; BP diastolic 51–88
[2019-06-06] MEDS: fentaNYL Drip 2500mCg/250mlNS 250 ML IV SCH ×2 (00:04→18:49)
--- NOTE | 2019-06-06 00:09 | NUR ---
Respiratory note: AT BEDSIDE FOR ROUTINE VENT CHECK. SX CATHETER CHANGED AND JOSEE HEATER WATER BOTTLE CHANGED OUT AT THIS TIME. PTS CURRENT TEMP IS 97.9F. NO VENT CHANGES MADE WILL CONTINUE TO MONITOR.
--- NOTE | 2019-06-06 02:04 | NUR ---
Respiratory note: AT BEDSIDE FOR ROUTINE VENT CHECK. PTS CURRENT TEMP IS 98.2F. NO VENT CHANGES MADE WILL CONTINUE TO MONITOR.
--- NOTE | 2019-06-06 04:06 | NUR ---
Respiratory note: END OF SHIFT VENT CHECK. NO VENT CHANGES MADE. PTS CURRENT TEMP IS 98.6F. WILL HAVE DAY SHIFT CONTINUE POC.
[2019-06-06] MEDS: SODIUM BICARBONATE 50ML VIAL 50 ML in SOD CHL 0.45% 1,000 ML IV SCH ×2 (04:15→15:34)
[2019-06-06] MEDS: PIPERACILLIN-TAZOB 2.25GM 50 ML IV SCH ×3 (05:50→21:13)
[2019-06-06] MEDS: ACCU-CHEK COMFORT CURVE STRIP VI SCH ×5 (06:00→23:51)
[2019-06-06] MEDS: InsuLIN REG 1unit/0.01ml Soln (100units/ml) SC SCH ×5 (06:00→23:51)
[2019-06-06] MEDS: IPRATROPIUM BROM 0.5 MG/2.5ML INH SOL NEB SCH ×3 (06:18→21:44)
[2019-06-06] MEDS: ALBUTEROL SULF 2.5 MG/0.5ML(0.5%) NEB SOLN NEB SCH ×3 (06:18→21:44)
--- NOTE | 2019-06-06 06:58 | NUR ---
UPDATED DAUGHTER VIA TELEPHONE- DAUGHTER NAME IS "ANASTASIIA".
--- NOTE | 2019-06-06 07:25 | NUR ---
INITIAL ASSESSMENT Report received from Sheryl PETERS. Patient observed in bed, intubated on ventilator. Pupils are equal and reactive to light. Tolerating ventilation at this time with oxygen saturation 99%, respirations are even and unlabored. Pulses palpable radial and pedal bilaterally. SCD's on bilateral lower extremities, heels in Jack boots. Sinus rhythm 90's noted on bedside monitor. Lungs clear but diminished in upper anterior lobes. Left nare NGT clamped. Oliver catheter patent, secure below bladder. See skin/wound assessment. Right IJ TLC, see iv spreadsheet. Bed locked in lowest position, alarms in place. Frequent repositioning. Will continue to monitor.
[2019-06-06 08:31] LABS: BUN/Creatinine Ratio 22.1; Calcium 7.5 mg/dL (8.5-10.1); Potassium 3.2 mmol/L (3.5-5.1)
--- NOTE | 2019-06-06 08:41 | NUR ---
RADIOLOGY materials technician at bedside for CXR.
--- NOTE | 2019-06-06 09:30 | NUR ---
MD VISIT: NEPHROLOGY Dr.Oladele munoz. MD reviewing chart and labs. No new orders received at this time.
[2019-06-06] MEDS: FAMOTIDINE (10MG/ML) 2ML VL IV SCH (10:00)
--- NOTE | 2019-06-06 10:00 | NUR ---
ELIMINATION Patient had small soft bowel movement. Eli care performed, patient repositioned on side. Patient tolerated activity well.
[2019-06-06] MEDS: CHOLECALCIFEROL (VITD3) 1,000IU=25mCg TAB PO SCH (10:18)
[2019-06-06] MEDS: NOREPINEPHRINE 8 MG/250ML KIT 250 ML IV SCH (11:00)
[2019-06-06] MEDS ORDERED: POTASSIUM CHL 20MEQ/100ML 100 ML IV ONE (11:00)
--- NOTE | 2019-06-06 11:00 | NUR ---
TF Tube feedings start per MD order. Rate 10cc/hr.
--- NOTE | 2019-06-06 12:18 | NUR ---
MD VISIT: PCP at bedside assessing patient. MD aware of labs and CXR.
--- NOTE | 2019-06-06 14:50 | NUR ---
VENT CHANGES DR PRASAD AT BEDSIDE WITH ORDERS FOR VENT CHANGES. DECREASED RR TO 16. PT NOW WITH SETTINGS: AC, RR 16, VT 450, PEEP +7, FIO2 30%. PT TOLERATING CHANGES WELL, NO ADVERSE REACTIONS NOTED.
--- NOTE | 2019-06-06 16:02 | NUR ---
CARES Partial linen change complete. Skin reassessment performed. Patient repositioned on side, tolerated activity well. Tube feeding residual checked, no residual. Continue at same rate. Bed locked in lowest position, alarms in place, will continue to monitor.
--- NOTE | 2019-06-06 19:14 | NUR ---
REPORT Report given to Anatoly PETERS, care endorsed.
--- NOTE | 2019-06-06 19:30 | NUR ---
OPEN ASSUMED CARE OF MALE PT ORALLY INTUBATED. PT SEDATED ON FENTANYL GTT 200 MCG/HR. SINUS RHYTHM ON LABORATORY ANALYST. PT OFF LEVOPHED. GTT'S INFUSING INTO RIJ TLC ALL PORTS PATENT. DRESSING CDI. NGT TO L. PLACEMENT VERIFIED. RUNNING FEEDING AT 10 ML/HR, NO RESIDUAL NOTED, WILL INCREASE FEEDING TO 20 ML OR TOLERATED. 20 G IV TO L. AC S/L, 18 G IV TO L. UPPER F.A. B&P. SEGAL TO GRAVITY DRAINING CLOUDY YELLOW IN APPEARANCE. PT OBSERVED TO HAVE LISA CHERRY BOOTS IN PLACE OFFLOADING LISA HEELS. OPTIFOAM GENTLE SACRAL DRESSING IN PLACE. ZGAURD TO PERIANAL AREA. NO INDICATION OF PAIN OBSERVED. BED IN LOWEST LOCKED POSITION. SIDE RAILS UP X 3. HOB ELEVATED 30 DEGREES. PILLOWS USED TO OFFLOAD BONY PROMINENCES. PT IN FULL VIEW OF RN STATION. WILL CONTINUE TO MONITOR.
--- NOTE | 2019-06-06 19:50 | NUR ---
IV removal IV DC'd with clean sterile technique, catheter fully intact. Pressure dressing applied to site. Patient tolerated well.
[2019-06-07] VITALS (70 sets, daily range): BP systolic 107–160; BP diastolic 56–116
[2019-06-07] MEDS ORDERED: NOREPINEPHRINE 8 MG/250ML KIT 0 ML IV ONE (03:18)
[2019-06-07] MEDS: PIPERACILLIN-TAZOB 2.25GM 50 ML IV SCH ×2 (04:51→14:57)
[2019-06-07] MEDS: SODIUM BICARBONATE 50ML VIAL 50 ML in SOD CHL 0.45% 1,000 ML IV SCH (05:08)
[2019-06-07] MEDS: IPRATROPIUM BROM 0.5 MG/2.5ML INH SOL NEB SCH ×3 (05:59→23:08)
[2019-06-07] MEDS: ALBUTEROL SULF 2.5 MG/0.5ML(0.5%) NEB SOLN NEB SCH ×3 (05:59→23:08)
[2019-06-07] MEDS: ACCU-CHEK COMFORT CURVE STRIP VI SCH ×3 (06:06→17:34)
[2019-06-07] MEDS: InsuLIN REG 1unit/0.01ml Soln (100units/ml) SC SCH ×3 (06:11→17:43)
[2019-06-07 06:18] LABS: Basophils # (auto) 0 10 ^3/uL (0-0.2); Basophils % (auto) 0.6 % (0.0-2.0); Eosinophils # (auto) 0 10 ^3/uL (0-0.8); Eosinophils % (auto) 0.7 % (0.0-7.0); Hematocrit 27.9 % (41.0-53.0); Hemoglobin 9.2 g/dL (13.5-17.5); Lymphocytes # (auto) 0.5 10 ^3/uL (0.4-5.4); Lymphocytes % (auto) 10.5 % (10.0-50.0); Mean Corpuscular Hemoglobin 28.9 pg (28.0-32.0); Mean Corpuscular Hgb Conc. 33.2 g/dL (32.0-36.0); Mean Corpuscular Volume 87.1 fL (80.0-100.0); Monocytes # (auto) 0.3 10 ^3/uL (0-1.3); Neutrophils # (auto) 4.1 10 ^3/uL (1.6-8.6); Neutrophils % (auto) 82.2 % (37.0-80.0); Nucleated Red Blood Cells % 1.3 %; Platelet Count (auto) 51 10^3/uL (140-450); Red Cell Distribution Width 15.7 % (11.8-14.3)
[2019-06-07 06:19] LABS: Calcium 7.9 mg/dL (8.5-10.1); Potassium 3.7 mmol/L (3.5-5.1)
[2019-06-07 06:21] LABS: BUN/Creatinine Ratio 23.1
--- NOTE | 2019-06-07 08:00 | NUR ---
OPENING SHIFT NOTE REPORT RECEIVED FROM CENTER SALES AND SERVICE ASSOCIATE RN, MORNING ASSESSMENT PERFORMED AND DOCUMENTED. PATIENT MECHANICALLY VENTILATED - NON SEDATED, NO AWAKE OR FOLLOWING COMMANDS AT THIS TIME. VSS AND DOCUMENTED. ORDERS FOR CPAP TRIAL RECEIVED, R.T. AWARE. FALL AND SAFETY PRECAUTIONS IN PLACE. WILL CONTINUE TO MONITOR.
[2019-06-07] MEDS: SOD CHL 0.45% 1,000 ML IV SCH ×2 (09:00→17:27)
[2019-06-07] MEDS: CHOLECALCIFEROL (VITD3) 1,000IU=25mCg TAB PO SCH (10:00)
--- NOTE | 2019-06-07 10:20 | NUR ---
HOSPITALIST AT BEDSIDE DR WILSON UPDATED ON PATIENT'S STATUS AND CPAP TRIAL BUT NOT AWAKE. DR WILSON AFTER REVIEWING PATIENT LABS ORDERED THAT PATIENT BE KEPT INTUBATED "TO GIVE HIM A CHANCE.". Estela FERRELL AT BEDSIDE AND AWARE.
[2019-06-07] MEDS: NOREPINEPHRINE 8 MG/250ML KIT 250 ML IV SCH (11:00)
--- NOTE | 2019-06-07 13:15 | NUR ---
DR PRASAD/PAGED DR STEVE PRASAD ORDERED R.T. GHASSAN TO EXTUBATE PATIENT. THIS NURSE NOTIFIED DR PRASAD OF DR WILSON'S RECOMMENDATIONS TO WAIT ONE MORE DAY TO SEE IF HE WAKES UP. DR AUGUSTIN CONTINUED TO ORDER EXTUBATION. THIS NURSE ASKED DR AUGUSTIN TO CALL FAMILY TO PROVIDE UPDATE AND NOTIFY OF EXTUBATION, DR AUGUSTIN VERBALIZED HE WAS TOO BUSY TO CALL, THIS NURSE NOTIFIED DR PRASAD THAT DR WILSON WILL BE NOTIFIED, DR AUGUSTIN STATED "ITS NOT HER CALL, SHE WILL NOT BE ABLE TO HELP YOU, I'M ORDERING EXTUBATION". DR WILSON PAGED, AWAITING RESPONSE TO PROVIDE UPDATE AND REQUEST SHE CALL FAMILY TO UPDATE AFTER MESSAGE WAS LEFT FROM PATIENT'S SON KURTIS REQUESTING STATUS.
--- NOTE | 2019-06-07 13:25 | NUR ---
RETURN CALL FROM DR WILSON AWARE OF PATIENT BEING EXTUBATED AND FAMILY REQUESTING AN UPDATE. DR WILSON STATED SHE WOULD GIVE FAMILY A CALL.
--- NOTE | 2019-06-07 14:04 | NUR ---
CALL RECEIVED FROM HOSPITALIST DR WILSON UPDATED ON PATIENT'S STATUS AFTER EXTUBATION AND DR WILSON NOTIFIED THIS NURSE THAT SHE CONTACTED FAMILY TO PROVIDE UPDATE. DR WILSON STATED PATIENT CAN BE DOWNGRADED AFTER 4 PM TODAY.
--- NOTE | 2019-06-07 15:34 | NUR ---
Nutrition Follow-up Wt.: 63.800 kg Pt is sedated, intubated, receiving artificial ventilation. Pt is NPO receiving TF with Jevity 1.2 Hunter @30 ml/hr. Recommend Glucerna 1.2 Hunter @60ml/hr goal rate. Will continue to monitor NPO status, skin status, pertinent labs and weight trends. Will f/u in 2 to 3 days. Est energy needs: 1848-9814 kcals (25-30 kcal/kgBW) Est protein needs: 60-65 gms/day (1.0-1.1 gm/kgBW) Labs 06/06: Na 151 H, BUN 74 H, Cr 3.2 H, GFR 20 L,Ca 7.9 L, Gluc 178 H, A1c 12.6 H, TP 5.1 L, Albumin 1.3 L GI: Incontinent, daily BM per filler feeder Skin: Hayden scale 11, high risk, DTI to brett. foot, pressure ulcer to R hip GI: Pt had BM on 06/05/19 per filler feeder. PES: 1) Inadequate nutrient intake r/t current nutrient needs aeb sedated, intubated, NPO status. 2) Altered nutrition related lab values r/t current medical condition aeb hypernatremia, hyperchloremia, elevated RFTs, low GFR, hypocalcemia, elevated LFTs, hypoalbuminemia Recommendations: 1) Consider EN support with Glucerna 1.2 @ 60 ml/hr goal rate 2) Gradually advance pt to Renal Specific oral diet when medically feasible and as tolerated 3) If albumin continues trending down with improved RFTs, consider Prostat 1 pkt BID 4) Continue current plan of care
--- NOTE | 2019-06-07 15:50 | NUR ---
PAGELisseth PRASAD TO PROVIDE [facility] RESULTS, AWAITING RESPONSE. Addendum: 06/07/19 at 1725 by Salome Valles RN WRONG PATIENT.
--- NOTE | 2019-06-07 19:54 | NUR ---
CALL RECEIVED FROM HOSPITALIST DR WILSON UPDATED ON PATIENT'S STATUS AND NEURO STATUS OF NOT WAKING UP AND DOWNGRADE ORDER TO MED SURG. DR WILSON REQUESTING PATIENT TO REMAIN IN ICU UNLESS ABSOLUTELY NECESSARY TRANSFER TO TELE. MOISES MCFARLAND RN AWARE AND VERBALIZED UNDERSTANDING.
--- NOTE | 2019-06-07 20:00 | NUR ---
OPEN ASSUMED CARE OF MALE PT ON 10L 100% MASK, SATS AT 98%. ON MASTER CONTROL SUPERVISOR. PT ON 03/02 NS, GTT'S INFUSING INTO RIJ TLC ALL PORTS PATENT. DRESSING CDI. NGT TO L. PLACEMENT VERIFIED. RUNNING FEEDING AT 10 ML/HR, NO RESIDUAL NOTED, WILL INCREASE FEEDING TO 20 ML OR TOLERATED. 20 G IV TO L. AC S/L. SEGAL TO GRAVITY DRAINING CLOUDY YELLOW IN APPEARANCE. PT OBSERVED TO HAVE LISA CHERRY BOOTS IN PLACE OFFLOADING LISA HEELS. OPTIFOAM GENTLE SACRAL DRESSING IN PLACE. ZGAURD TO PERIANAL AREA. NO INDICATION OF PAIN OBSERVED. BED IN LOWEST LOCKED POSITION. SIDE RAILS UP X 3. HOB ELEVATED 30 DEGREES. PILLOWS USED TO OFFLOAD BONY PROMINENCES. PT IN FULL VIEW OF RN STATION. WILL CONTINUE TO MONITOR.
[2019-06-07] MEDS: cefTRIAXone 1GM/50ML D5W 50 ML IV SCH (20:56)
--- NOTE | 2019-06-07 21:56 | NUR ---
PAGED HOSPITALIST REGARDING RUN OF VTACH NOTED RUN OF (SIX) VTACH AT 2047 PAGED HOSPITALIST
--- NOTE | 2019-06-07 22:09 | NUR ---
HOSPITALIST RETURNED CALL NO NEW ORDERS AT THIS TIME
[2019-06-08] VITALS (38 sets, daily range): BP systolic 120–175; BP diastolic 65–95
[2019-06-08] MEDS: fentaNYL Drip 2500mCg/250mlNS 250 ML IV SCH (00:04)
[2019-06-08] MEDS: ACCU-CHEK COMFORT CURVE STRIP VI SCH ×4 (00:11→17:43)
[2019-06-08] MEDS: InsuLIN REG 1unit/0.01ml Soln (100units/ml) SC SCH ×4 (00:16→18:00)
[2019-06-08 04:30] LABS: Basophils # (auto) 0 10 ^3/uL (0-0.2); Basophils % (auto) 0.4 % (0.0-2.0); Eosinophils # (auto) 0 10 ^3/uL (0-0.8); Eosinophils % (auto) 0.2 % (0.0-7.0); Hematocrit 30.7 % (41.0-53.0); Hemoglobin 10.1 g/dL (13.5-17.5); Lymphocytes # (auto) 0.5 10 ^3/uL (0.4-5.4); Lymphocytes % (auto) 11.3 % (10.0-50.0); Mean Corpuscular Hemoglobin 28.7 pg (28.0-32.0); Mean Corpuscular Hgb Conc. 32.8 g/dL (32.0-36.0); Mean Corpuscular Volume 87.5 fL (80.0-100.0); Monocytes # (auto) 0.4 10 ^3/uL (0-1.3); Monocytes % (auto) 8.1 % (0.0-12.0); Neutrophils # (auto) 3.8 10 ^3/uL (1.6-8.6); Nucleated Red Blood Cells % 1.8 %; Platelet Count (auto) 75 10^3/uL (140-450); White Blood Cell 4.8 10^3/uL (4.4-10.8)
[2019-06-08 04:32] LABS: BUN/Creatinine Ratio 20.8; Potassium 3.7 mmol/L (3.5-5.1)
--- NOTE | 2019-06-08 06:05 | NUR ---
PAGED RT REGARDING TACHYPNEA
--- NOTE | 2019-06-08 06:10 | NUR ---
PAGED HOSPITALIST CONCERNING VITAL SINGS PT RR WENT UP TO 40'S, BP UP TO 170'S, HR IN 105.
--- NOTE | 2019-06-08 06:15 | NUR ---
RT AT BEDSIDE
--- NOTE | 2019-06-08 06:16 | NUR ---
HOSPITALIST RETURNED CALL NEW ORDERS RECEIVED
[2019-06-08] MEDS: IPRATROPIUM BROM 0.5 MG/2.5ML INH SOL NEB SCH ×3 (06:17→21:39)
[2019-06-08] MEDS: ALBUTEROL SULF 2.5 MG/0.5ML(0.5%) NEB SOLN NEB SCH ×3 (06:17→21:38)
[2019-06-08] MEDS ORDERED: LABETALOL HCL 5 MG/ML 4ML SYRINGE IV ONE ×2 (06:23→06:30)
--- NOTE | 2019-06-08 06:53 | NUR ---
DAYSHIFT BED ASSIGNMENT 279B SAMEER *near nurses station for better observation
--- NOTE | 2019-06-08 07:09 | NUR ---
REPORT GIVEN TO ELAN FINNEGAN)
--- NOTE | 2019-06-08 07:10 | NUR ---
ASSUMED CARE OF PATIENT, VITAL SIGNS STABLE. RESPIRATIONS EVEN BUT LABORED. BED IN LOW POSITION CALL LIGHT IN REACH. WILL CONTINUE TO MONITOR. REPORT GIVE TO ELAN BY FACTORY LAY OUT ENGINEER NURSE MOSES PETERS.
--- NOTE | 2019-06-08 07:31 | NUR ---
ROOM NUMBER [id number]
[2019-06-08] MEDS: cefTRIAXone 1GM/50ML D5W 50 ML IV SCH ×2 (09:03→21:28)
--- NOTE | 2019-06-08 09:15 | NUR ---
ICU TX RECEIVED ASSUMED CARE PT ON 4L NC SATURATING AT 95%. ON TELE MONITOR #61 WITH A SINUS RHYTHM AT 70BPM. PATIENT DOES NOT OPEN EYES OR FOLLOWS COMMANDS BUT RESPONSIVE TO PAINFUL STIMULI BY WITHDRAW AND MOANING. PT ON 03/02 NS, ALL PORTS PATENT. NGT TO L. NARE. RUNNING FEEDING AT 30 ML/HR, NO RESIDUAL NOTED. SEGAL TO GRAVITY DRAINING CLOUDY YELLOW IN APPEARANCE. PT OBSERVED TO HAVE LISA CHERRY BOOTS IN PLACE OFFLOADING LISA HEELS. OPTIFOAM GENTLE SACRAL DRESSING CHANGED. ZGAURD TO PERIANAL AREA. NO INDICATION OF PAIN OBSERVED. BED IN LOWEST LOCKED POSITION. SIDE RAILS UP X 3. HOB ELEVATED 30 DEGREES. PILLOWS USED TO OFFLOAD BONY PROMINENCES. WILL CONTINUE TO MONITOR.
--- NOTE | 2019-06-08 09:20 | NUR ---
PATIENT TRANSFERRED TO ROOM 279B VIA BED CONNECTED TO PORTABLE OXYGEN AND TELEMETRY BOX 61. NO SIGNS OF DISTRESS NOTED. CALL LIGHT IN REACH, BED IN LOW POSITION. PRIMARY NURSE ELAN AT BEDSIDE UPON ARRIVAL.
[2019-06-08] MEDS ORDERED: SOD CHL 0.45% 1,000 ML IV SCH (09:45)
[2019-06-08] MEDS: FAMOTIDINE (10MG/ML) 2ML VL IV SCH (10:37)
[2019-06-08] MEDS: CHOLECALCIFEROL (VITD3) 1,000IU=25mCg TAB PO SCH (10:38)
--- NOTE | 2019-06-08 12:05 | NUR ---
DR WILSON AT BED SIDE DR UPDATED ON LATEST STATUS AND VITAL SIGNS NEW ORDERS RECEIVED. WILL IMPLEMENT.
--- NOTE | 2019-06-08 12:15 | NUR ---
MD WILSON AWARE OF ELEVATED BP. NEW ORDERS RECEIVED. WILL IMPLEMENT.
[2019-06-08] MEDS ORDERED: amLODIPine BESYLATE 5 MG TAB PO ONE (12:30)
[2019-06-08] MEDS: SOD CHL 0.45% 1,000 ML IV SCH (12:32)
--- NOTE | 2019-06-08 18:23 | NUR ---
ELEVATED BP/HOSP PAGED AWAITING CALL BACK
--- NOTE | 2019-06-08 18:33 | NUR ---
NEW ORDERS RECEIVED VIA TELEPHONE, READ BACK AND VERIFIED. WILL IMPLEMENT.
[2019-06-08] MEDS: hydrALAZINE HCL 20 MG/ML VL IV PRN (18:38)
[2019-06-08] MEDS: HEPARIN SODIUM (PORCINE) 5000 UNITS/ML 1ML VIAL SC SCH (21:29)
[2019-06-09] MEDS: InsuLIN REG 1unit/0.01ml Soln (100units/ml) SC SCH ×5 (00:33→23:53)
[2019-06-09 05:00] VITALS: BP 155/93
[2019-06-09] MEDS: ACCU-CHEK COMFORT CURVE STRIP VI SCH ×5 (05:57→23:54)
[2019-06-09] MEDS: ALBUTEROL SULF 2.5 MG/0.5ML(0.5%) NEB SOLN NEB SCH ×3 (06:22→22:24)
[2019-06-09] MEDS: IPRATROPIUM BROM 0.5 MG/2.5ML INH SOL NEB SCH ×3 (06:22→22:24)
--- NOTE | 2019-06-09 07:03 | NUR ---
PATIENT IS RESPONDING TO DEEP PRESSURE ON SKIN BY GRIMACING AND WITHDRAWING LIMBS. HAD ONE LARGE LOOSE BM DURING THE NIGHT. MAKING ADEUATE URINE.
--- NOTE | 2019-06-09 07:10 | NUR ---
OPENING NOTE RESUMED CARE OF PT ON 4L NC SATURATING AT 96%. ON TELE MONITOR #61 WITH A SINUS RHYTHM AT 60BPM. PATIENT DOES NOT OPEN EYES OR FOLLOWS COMMANDS BUT RESPONSIVE TO PAINFUL STIMULI BY WITHDRAW AND MOANING. PT ON 1/ NS, ALL PORTS PATENT. NGT TO L. NARE. RUNNING FEEDING AT 30 ML/HR, 20ML RESIDUAL NOTED. SEGAL TO GRAVITY DRAINING CLOUDY YELLOW IN APPEARANCE. PT OBSERVED TO HAVE LISA CHERRY BOOTS IN PLACE OFFLOADING LISA HEELS. OPTIFOAM GENTLE SACRAL DRESSING CHANGED. ZGAURD TO PERIANAL AREA. NO INDICATION OF PAIN OBSERVED. BED IN LOWEST LOCKED POSITION. SIDE RAILS UP X 3. HOB ELEVATED 30 DEGREES. PILLOWS USED TO OFFLOAD BONY PROMINENCES. WILL CONTINUE TO MONITOR.
[2019-06-09 07:12] LABS: BUN/Creatinine Ratio 22.2; Calcium 8.2 mg/dL (8.5-10.1); Potassium 3.3 mmol/L (3.5-5.1)
[2019-06-09] MEDS: SOD CHL 0.45% 1,000 ML IV SCH (08:30)
--- NOTE | 2019-06-09 08:58 | NUR ---
RECEIVED CALL FROM PATIENTS DAUGHTER CARLENE FOR STATUS UPDATE. PASSWORD CORRECT. ALL QUESTIONS AND CONCERNS ADDRESSED TO SATISFACTION.
[2019-06-09 09:00] VITALS: BP 167/99
[2019-06-09] MEDS: hydrALAZINE HCL 20 MG/ML VL IV PRN ×2 (09:00→17:19)
[2019-06-09] MEDS ORDERED: HEPARIN SODIUM (PORCINE) 5000 UNITS/ML 1ML VIAL ONE (09:48)
[2019-06-09] MEDS: cefTRIAXone 1GM/50ML D5W 50 ML IV SCH ×2 (10:08→20:51)
[2019-06-09] MEDS: CHOLECALCIFEROL (VITD3) 1,000IU=25mCg TAB PO SCH (10:09)
[2019-06-09] MEDS: amLODIPine BESYLATE 5 MG TAB PO SCH (10:09)
[2019-06-09] MEDS: HEPARIN SODIUM (PORCINE) 5000 UNITS/ML 1ML VIAL SC SCH ×2 (10:10→21:30)
[2019-06-09] MEDS: SOD CHL 0.45% WITH 20MEQ KCL 1,000 ML IV SCH (11:00)
--- NOTE | 2019-06-09 11:24 | NUR ---
MD WILSON AT BED SIDE. NO NEW ORDERS RECEIVED. PER MD SHE WILL CALL PATIENTS FAMILY TO INQUIRE POC.
[2019-06-09 13:00] VITALS: BP 159/90
[2019-06-09 15:38] LABS: Protein, Urine 65.9 mg/dL (0.0-11.9)
[2019-06-09 17:00] VITALS: BP 155/85
--- NOTE | 2019-06-09 20:00 | NUR ---
Opening Shift Note Assumed care of patient, lethargic non responsive to verbal stimuli. No S/S of distress/SOB or pain. DNR status, will continue to monitor for changes Q1hr and PRN.
[2019-06-09 21:43] VITALS: BP 135/76
[2019-06-10] MEDS: SOD CHL 0.45% WITH 20MEQ KCL 1,000 ML IV SCH ×2 (00:51→14:19)
[2019-06-10] MEDS: hydrALAZINE HCL 20 MG/ML VL IV PRN (05:02)
[2019-06-10] MEDS: ACCU-CHEK COMFORT CURVE STRIP VI SCH ×3 (05:24→17:43)
[2019-06-10] MEDS: InsuLIN REG 1unit/0.01ml Soln (100units/ml) SC SCH ×3 (05:25→17:52)
[2019-06-10 05:36] VITALS: BP 155/91
[2019-06-10 06:07] LABS: Basophils # (auto) 0 10 ^3/uL (0-0.2); Basophils % (auto) 0.3 % (0.0-2.0); Eosinophils # (auto) 0 10 ^3/uL (0-0.8); Eosinophils % (auto) 0.1 % (0.0-7.0); Hematocrit 30.6 % (41.0-53.0); Lymphocytes # (auto) 0.8 10 ^3/uL (0.4-5.4); Lymphocytes % (auto) 6.9 % (10.0-50.0); Mean Corpuscular Hemoglobin 28.4 pg (28.0-32.0); Mean Corpuscular Hgb Conc. 32.6 g/dL (32.0-36.0); Mean Corpuscular Volume 87.1 fL (80.0-100.0); Monocytes # (auto) 0.3 10 ^3/uL (0-1.3); Monocytes % (auto) 2.1 % (0.0-12.0); Neutrophils % (auto) 90.6 % (37.0-80.0); Nucleated Red Blood Cells % 0.5 %; Platelet Count (auto) 208 10^3/uL (140-450); Red Blood Cells 3.52 10^6/uL (4.5-5.90); White Blood Cell 12.1 10^3/uL (4.4-10.8)
[2019-06-10] MEDS: IPRATROPIUM BROM 0.5 MG/2.5ML INH SOL NEB SCH ×3 (06:41→22:08)
[2019-06-10] MEDS: ALBUTEROL SULF 2.5 MG/0.5ML(0.5%) NEB SOLN NEB SCH ×3 (06:41→22:08)
--- NOTE | 2019-06-10 07:23 | NUR ---
Report given to Leroy Bowen , patient is lethargic,non responsive to verbal stimuli ,DNR status, total care, not in pain.
[2019-06-10 08:52] VITALS: BP 136/78
--- NOTE | 2019-06-10 08:59 | NUR ---
Opening Shift Note received report on the patient. Sleeping in bed. Patient shows no signs of distress at this time. Could not discuss the plan of care with the patient because he is non responsive. Bed in lowest position, side rails up x2, and the call light is within reach. Will continue to monitor.
[2019-06-10] MEDS: FAMOTIDINE (10MG/ML) 2ML VL IV SCH (10:00)
--- NOTE | 2019-06-10 10:16 | NUR ---
Dr. Landers at bedside
--- NOTE | 2019-06-10 10:17 | NUR ---
MD Dr. Landers called and spoke to the daughter Jennifer regarding putting the patient on hospice. Dr. Landers explained the recommendations for hospice. Dr. Landers instructed Jennifer to call Dr. Caba on Wednesday at 10:00am about hospice.
--- NOTE | 2019-06-10 10:30 | NUR ---
WOUND CARE NOTE: IN TO SEE PATIENT AT THIS TIME FOR WOUND REASSESSMENT. PATIENT'S CURRENT SIS SCORE IS 12. HE IS NON VERBAL. PATIENT IS VERY THIN, PROMINENT BONY PROMINENCES, MULTIPLE DTI'S TO BLE, AND STAGE 2 PRESSURE INJURIES X 2 OVER MASD TO SACRUM. WILL ORDER SPECIALTY AIR MATTRESS AT THIS TIME. PATIENT TO BE PLACED, PENDING DELIVERY BY [facility]. PATIENT HAS DEVELOPED A SERUM FILLED BLISTER TO THE LEFT FOREARM. BLISTER IS INTACT, LEFT OPEN TO AIR. SKIN IS PINK, BLISTER FILLED WITH CLEAR SERUM. HIS UNSTAGEABLE PRESSURE INJURY/MASD HAS SOME SKIN EROSION NOTED, WITH TWO OPEN PARTIAL THICKNESS AREAS TO LEFT BUTTOCK (2X2 CM), AND COCCYX (1 X 2CM). PERIWOUND IS DARK RED. REAPPLIED ZGUARD, OPTIFOAM GENTLE DRESSINGS TO AREA. ALL DTI'S/NECROSIS AREAS TO BILATERAL FEET/TOES AND UNSTAGEABLE PRESSURE INJURY TO RIGHT HIP REMAIN THE SAME. ALL AREAS CONTINUE TO BE INTACT, NO NEED FOR DRESSINGS. PATIENT HAS CHERRY BOOTS IN PLACE TO BOTH FEET/HEELS. RECOMMEND: SPECIALTY AIR MATTRESS, CONTINUATION WITH ALL WOUND CARE ORDERS PREVIOUSLY PRESCRIBED BY MD. WOUND CARE TEAM WILL CONTINUED MONITOR. Addendum: 06/10/19 at 1558 by Fifi Robledo RN Amended: Links added.
[2019-06-10] MEDS: cefTRIAXone 1GM/50ML D5W 50 ML IV SCH ×2 (12:07→21:29)
[2019-06-10] MEDS: CHOLECALCIFEROL (VITD3) 1,000IU=25mCg TAB PO SCH (12:09)
[2019-06-10] MEDS: amLODIPine BESYLATE 5 MG TAB PO SCH (12:09)
[2019-06-10] MEDS: HEPARIN SODIUM (PORCINE) 5000 UNITS/ML 1ML VIAL SC SCH ×2 (12:10→22:39)
[2019-06-10 13:00] VITALS: BP 152/71
[2019-06-10 17:00] VITALS: BP 160/68
--- NOTE | 2019-06-10 17:26 | NUR ---
Mattress Placed patient on a specialty mattress
--- NOTE | 2019-06-10 19:20 | NUR ---
Opening Shift Note Assumed care of patient, the patient is currently A/Ox0. No S/S of distress/SOB or pain. The patient is stating 95% on 4 L NC. The patient is currently on a feeding tube that administering Jevity at 30 mls/hr. Oliver is draining due to gravity. The patient is currently on a speciality mattress. Will continue to monitor for changes Q1hr and PRN.
[2019-06-10 22:00] VITALS: BP 144/75
[2019-06-10 22:11] VITALS: BP 110/68
[2019-06-11] MEDS: InsuLIN REG 1unit/0.01ml Soln (100units/ml) SC SCH ×5 (00:20→23:54)
[2019-06-11] MEDS: ACCU-CHEK COMFORT CURVE STRIP VI SCH ×5 (00:21→23:54)
[2019-06-11] MEDS: SOD CHL 0.45% WITH 20MEQ KCL 1,000 ML IV SCH ×3 (02:30→20:55)
[2019-06-11 05:00] VITALS: BP 149/84
[2019-06-11 06:18] LABS: Albumin 1.2 g/dL (3.4-5.0); Calcium 7.9 mg/dL (8.5-10.1); Potassium 3.6 mmol/L (3.5-5.1)
[2019-06-11 06:35] LABS: BUN/Creatinine Ratio 18.8; Bilirubin, Total 0.4 mg/dL (0.2-1.0)
[2019-06-11] MEDS: ALBUTEROL SULF 2.5 MG/0.5ML(0.5%) NEB SOLN NEB SCH ×3 (06:39→21:33)
[2019-06-11] MEDS: IPRATROPIUM BROM 0.5 MG/2.5ML INH SOL NEB SCH ×3 (06:39→21:33)
--- NOTE | 2019-06-11 07:30 | NUR ---
Opening Shift Note Assumed care of patient from noc shift rn, the patient is currently A/Ox0. No S/S of distress/SOB or pain. The patient is stating 95% on 4 L NC. The patient is currently on a feeding tube that administering Jevity at 30 mls/hr. Oliver is draining due to gravity. The patient is currently on a specialty mattress. Will continue to monitor for changes Q1hr and PRN.
[2019-06-11 08:32] VITALS: BP 146/86
[2019-06-11] MEDS: cefTRIAXone 1GM/50ML D5W 50 ML IV SCH ×2 (09:44→21:22)
--- NOTE | 2019-06-11 10:22 | NUR ---
Dr. Landers attended to patient. Discussed plan to discharge to hospice on Wednesday06/12/19. Per Dr. Landers Daughter Jennifer is in agreement.
[2019-06-11] MEDS: HEPARIN SODIUM (PORCINE) 5000 UNITS/ML 1ML VIAL SC SCH ×2 (10:53→21:54)
[2019-06-11] MEDS: amLODIPine BESYLATE 5 MG TAB PO SCH (10:54)
[2019-06-11] MEDS: CHOLECALCIFEROL (VITD3) 1,000IU=25mCg TAB PO SCH (10:54)
[2019-06-11 13:00] VITALS: BP 144/83
[2019-06-11 16:54] VITALS: BP 142/86
[2019-06-11 21:32] VITALS: BP 140/74
[2019-06-12 04:29] VITALS: BP 137/76
[2019-06-12 05:24] LABS: Albumin 1.2 g/dL (3.4-5.0); Calcium 7.8 mg/dL (8.5-10.1)
[2019-06-12 05:28] LABS: BUN/Creatinine Ratio 17.2; Bilirubin, Total 0.4 mg/dL (0.2-1.0); Total Protein 6.3 g/dL (6.4-8.2)
[2019-06-12] MEDS: ACCU-CHEK COMFORT CURVE STRIP VI SCH ×3 (06:03→18:00)
[2019-06-12] MEDS: InsuLIN REG 1unit/0.01ml Soln (100units/ml) SC SCH ×3 (06:04→18:40)
[2019-06-12] MEDS: ALBUTEROL SULF 2.5 MG/0.5ML(0.5%) NEB SOLN NEB SCH ×3 (06:24→22:07)
[2019-06-12] MEDS: IPRATROPIUM BROM 0.5 MG/2.5ML INH SOL NEB SCH ×3 (06:24→22:07)
[2019-06-12] MEDS: SOD CHL 0.45% WITH 20MEQ KCL 1,000 ML IV SCH (07:05)
--- NOTE | 2019-06-12 07:30 | NUR ---
Opening Shift Note Assumed care of patient from noc shift rn, the patient is currently A/Ox0. No S/S of distress/SOB or pain. The patient is on 4 L NC. The patient is currently on a feeding tube that administering Jevity at 30 mls/hr. Oliver is draining to gravity. The patient is currently on a specialty mattress. Will continue to monitor for changes Q1hr and PRN.
[2019-06-12] MEDS: cefTRIAXone 1GM/50ML D5W 50 ML IV SCH ×2 (08:38→21:44)
[2019-06-12 09:00] VITALS: BP 145/81
[2019-06-12] MEDS: FAMOTIDINE (10MG/ML) 2ML VL IV SCH (10:00)
[2019-06-12] MEDS: CHOLECALCIFEROL (VITD3) 1,000IU=25mCg TAB PO SCH (11:35)
[2019-06-12] MEDS: amLODIPine BESYLATE 5 MG TAB PO SCH (11:39)
[2019-06-12] MEDS: HEPARIN SODIUM (PORCINE) 5000 UNITS/ML 1ML VIAL SC SCH ×2 (11:43→21:46)
[2019-06-12 13:00] VITALS: BP 148/76
--- NOTE | 2019-06-12 13:15 | NUR ---
Dr. Caba at bedside. Ordered to discontinue all fluids. Ordered to follow Nutrition recommendation for Glucerna 1.2 Hunter @60ml/hr goal rate. Awaiting for family decision on hospice placement.
--- NOTE | 2019-06-12 14:59 | NUR ---
Nutrition Follow-up Notes Wt.: 75.700 kg Pt was sleeping when rounded this morning. Pt is NPO receiving TF with Jevity 1.2 Hunter @30 ml/hr. Recommended Glucerna 1.2 Hunter @60ml/hr goal rate, conveyed recommendation to RN and was noted. Pt in no noted distress per drycleaner. Will continue to monitor NPO status, skin status, pertinent labs and weight trends. Will f/u in 2 to 3 days. Est energy needs: 2952-0931 kcals (25-30 kcal/kgBW) Est protein needs: 60-65 gms/day (1.0-1.1 gm/kgBW) Labs 06/11: Na 150 H, Cl 118 H, BUN 2 H, Cr WNL, GFR 58 L, (much improved), Ca 7.8 L, Gluc 239 H, A1c 12.6 H, TP 6.9 L, Albumin 1.2 L GI: Incontinent, Pt had BM on 06/12/19 per drycleaner Skin: Hayden scale 11, high risk, DTI to brett. foot, pressure ulcer to R hip PES: 1) Inadequate nutrient intake r/t current nutrient needs aeb sedated, intubated, NPO status. 2) Altered nutrition related lab values r/t current medical condition aeb hypernatremia, hyperchloremia, elevated RFTs, low GFR, hypocalcemia, elevated LFTs, hypoalbuminemia Recommendations: 1) Consider EN support with Glucerna 1.2 @ 60 ml/hr goal rate 2) Gradually advance pt to Renal Specific oral diet when medically feasible and as tolerated 3) If albumin continues trending down with improved RFTs, consider Prostat 1 pkt BID 4) Continue current plan of care
[2019-06-12] MEDS ORDERED: Glucerna 1.2 Cal 1Liter BOTTLE GT SCH (17:30)
[2019-06-12 17:34] VITALS: BP 144/84
--- NOTE | 2019-06-12 19:40 | NUR ---
Opening Shift Note Assumed care of patient, eyes closed, withdrawals to deep stimuli, does not open eyes, does not follow direction. Patient on 4L via NC, RR 28, HOB elevated. Right IJ triple lumen intact and patent, saline lock. NGT left nare, placement verified, no residual. Oliver intact and draining to gravity with clear yellow urine. Patient turned and repositioned with max assistance. Bed in lowest locked position with side rails up x 3 and call light within reach, bed alarm on. Aspiration precautions in place. Will continue to monitor for changes Q1hr and PRN.
--- NOTE | 2019-06-12 22:00 | NUR ---
Dressing changed to sacrum per orders. patient was turned with max assistance and repositioned. Bed in lowest locked position with side rails up x 3 and call light within reach, bed alarm on. will continue to monitor.
--- NOTE | 2019-06-12 22:15 | NUR ---
RT at bedside patient on 4L via NC with o2 sat 88%, patient was placed on 10L simple mask with o2 sat 91%. will continue to monitor.
[2019-06-12 22:43] VITALS: BP 129/71
--- NOTE | 2019-06-13 00:10 | NUR ---
Rounds patient resting with eyes closed, on oxygen at 10L via simple mask with o2 sat 92%, RR 24, HOB elevated. will continue to monitor.
[2019-06-13] MEDS: ACCU-CHEK COMFORT CURVE STRIP VI SCH ×3 (00:16→11:58)
[2019-06-13] MEDS: InsuLIN REG 1unit/0.01ml Soln (100units/ml) SC SCH ×3 (00:19→11:58)
[2019-06-13 05:43] VITALS: BP 154/83
[2019-06-13 05:45] LABS: Basophils # (auto) 0 10 ^3/uL (0-0.2); Basophils % (auto) 0.3 % (0.0-2.0); Eosinophils # (auto) 0 10 ^3/uL (0-0.8); Eosinophils % (auto) 0.3 % (0.0-7.0); Hematocrit 29.2 % (41.0-53.0); Hemoglobin 9.8 g/dL (13.5-17.5); Lymphocytes # (auto) 0.7 10 ^3/uL (0.4-5.4); Lymphocytes % (auto) 5.2 % (10.0-50.0); Mean Corpuscular Hemoglobin 29.2 pg (28.0-32.0); Mean Corpuscular Hgb Conc. 33.5 g/dL (32.0-36.0); Mean Corpuscular Volume 87.3 fL (80.0-100.0); Monocytes # (auto) 0.5 10 ^3/uL (0-1.3); Monocytes % (auto) 3.2 % (0.0-12.0); Nucleated Red Blood Cells % 1.2 %; Platelet Count (auto) 398 10^3/uL (140-450); Red Blood Cells 3.35 10^6/uL (4.5-5.90); Red Cell Distribution Width 16.1 % (11.8-14.3); White Blood Cell 14.3 10^3/uL (4.4-10.8)
[2019-06-13 05:56] LABS: Albumin 1.2 g/dL (3.4-5.0); Calcium 7.7 mg/dL (8.5-10.1); Potassium 4.2 mmol/L (3.5-5.1)
--- NOTE | 2019-06-13 06:00 | NUR ---
Rounds / BM patient had moderate amount of BM, patient was cleansed and full linen change provided. patient was repositioned with head of bed elevated, aspiration precautions in place. Oxygen on at 10L via simple mask with o2 sat 92%, RR 28. Left NGT secured and intact with tube feeding resumed at 60ml/hr per orders, no residual noted. Oliver intact and draining to gravity. Jack foam boots on to bilateral feet. patient on specialty air mattress. bed in lowest locked position with side rails up x 3 and call light within reach, bed alarm on. will continue to monitor.
[2019-06-13 06:01] LABS: BUN/Creatinine Ratio 16.2; Bilirubin, Total 0.5 mg/dL (0.2-1.0); Phosphorus 2.6 mg/dL (2.5-4.90); Total Protein 6.2 g/dL (6.4-8.2)
[2019-06-13 06:04] VITALS: BP 139/77
[2019-06-13] MEDS: IPRATROPIUM BROM 0.5 MG/2.5ML INH SOL NEB SCH ×2 (06:29→14:29)
[2019-06-13] MEDS: ALBUTEROL SULF 2.5 MG/0.5ML(0.5%) NEB SOLN NEB SCH ×2 (06:29→14:29)
--- NOTE | 2019-06-13 06:53 | NUR ---
Closing Note patient resting in bed with head of bed elevated, aspiration precautions in place. Oxygen on at 10L via simple mask. Left NGT secured and intact with tube feeding at 60ml/hr per orders. Oliver intact and draining to gravity. Jack foam boots on to bilateral feet. patient on specialty air mattress. bed in lowest locked position with side rails up x 3 and call light within reach, bed alarm on.
--- NOTE | 2019-06-13 07:14 | NUR ---
Endorsed care to dayshift FRAN Cartagena
[2019-06-13] MEDS: cefTRIAXone 1GM/50ML D5W 50 ML IV SCH (09:09)
[2019-06-13] MEDS: HEPARIN SODIUM (PORCINE) 5000 UNITS/ML 1ML VIAL SC SCH (09:10)
[2019-06-13] MEDS: CHOLECALCIFEROL (VITD3) 1,000IU=25mCg TAB PO SCH (09:10)
[2019-06-13] MEDS: amLODIPine BESYLATE 5 MG TAB PO SCH (09:11)
[2019-06-13 09:22] VITALS: BP 140/79
--- NOTE | 2019-06-13 11:23 | NUR ---
re-assessment Per consult hospice evaluation. Per Jennifer patients daughter she needs placement for patient. Patient gets 1,100 per month in [facility]. Per Jennifer she has no preference who provides service. MD order has been sent to [facility] non profit. Karley TOMLINSON has contacted family. Family has agreed to service and patient will go to [place] [facility] [employer] Board and care John Quiroz Wind Turbine Design Engineer [address] [place] [address] . Safety care transport will transport patient at 3pm today post discharge. Osiel PETERS has been notified. Jennifer lewis agrees to discharge plan to board and care on hospice Addendum: 06/13/19 at 1129 by Aileen Figueroa Amended: Links added.
[2019-06-13 12:28] VITALS: BP 140/79
[2019-06-13 13:24] VITALS: BP 140/80
--- NOTE | 2019-06-13 13:46 | NUR ---
CARLENE (Next of Kin) notified re patient is being transfer to [facility] and , puppet maker time around 3 PM.
--- NOTE | 2019-06-13 14:30 | NUR ---
Photos taken to all wounds prior discharge.
--- NOTE | 2019-06-13 14:30 | NUR ---
[facility]SA sent prior discharge.
--- NOTE | 2019-06-13 16:08 | NUR ---
Discharge instructions given as ordered. Encourage to follow up with PMD (Patient is being transfer to [facility]. John Quiroz Professor/Nurse Anesthetist [id number] [place] [address] )as instructed. All questions and concerns addressed. Patient verbalized understanding. Medication reconciliation form completed and copy given to patient. IV removed with catheter intact, pressure dressing applied. Telemetry unit returned to ICU. Patient taken to vehicle via gurney with all personal belongings, accompanied by transport staff. No distress noted at time of departure.
== END 2019-06-13 16:10 | disposition hospice, home (50) | DRG 870 ==
LOC: ER 08:21 → EDBD 08:21 → OVERFLOW 08:22 → ICU WEST 06-02 09:24 → WEST WING 06-08 09:16
PROVIDERS: ADMIT Internal Medicine; ATTEND Internal Medicine Nephrology
PROC: 02HV33Z Insertion of Infusion Device into Superior Vena Cava, Percutaneous Approach (ICD-10-PCS; principal; 2019-06-02)
PROC: 5A1955Z Respiratory Ventilation, Greater than 96 Consecutive Hours (ICD-10-PCS; 2019-06-02)
PROC: 0BH17EZ Insertion of Endotracheal Airway into Trachea, Via Natural or Artificial Opening (ICD-10-PCS; 2019-06-02)
DX: A41.9 Sepsis, unspecified organism (principal); G93.41 Metabolic encephalopathy; N17.0 Acute kidney failure with tubular necrosis; J96.21 Acute and chronic respiratory failure with hypoxia; R65.21 Severe sepsis with septic shock; J15.6 Pneumonia due to other Gram-negative bacteria; I21.4 Non-ST elevation (NSTEMI) myocardial infarction; E87.0 Hyperosmolality and hypernatremia; D68.9 Coagulation defect, unspecified; J44.1 Chronic obstructive pulmonary disease with (acute) exacerbation; J98.11 Atelectasis; E87.3 Alkalosis; Z99.11 Dependence on respirator [ventilator] status; E87.1 Hypo-osmolality and hyponatremia; F03.90 Unspecified dementia, unspecified severity, without behavioral disturbance, psychotic disturbance, mood disturbance, and anxiety; E86.0 Dehydration; I48.91 Unspecified atrial fibrillation; R62.7 Adult failure to thrive; E11.65 Type 2 diabetes mellitus with hyperglycemia; D69.59 Other secondary thrombocytopenia; E87.6 Hypokalemia; Z66 Do not resuscitate; Z03.818 Encounter for observation for suspected exposure to other biological agents ruled out
CPT/HCPCS: 36415; 36600; 70450; 71045; 71250; 74176; 76775; 80048; 80053; 80061; 81001; 82306; 82550; 82570; 82728; 82805; 82962; 83036; 83605; 83735; 83880; 83970; 84100; 84156; 84300; 84443; 84484; 85025; 85610; 85730; 86141; 87040; 87070; 87077; 87081; 87086; 87186; 87205; 87804; 87880; 93005; 93306; 94002; 94003; 94640; 96365; 96367; 96375; G0378; J0330; J0696; J1815; J2250; J2543; J3480; J3490; J7042